=== PATIENT | female | born 1955 | race Caucasian/White ===

== ENCOUNTER → 2024-06-08 08:30 | Outpatient (REF) | payer OTHER, SELFPAY ==
[2024-06-08 19:53] LABS: Hepatitis B Surface Antibody Negative
[2024-06-08 19:56] LABS: Rubella Negative
[2024-06-10 07:05] LABS: Quantiferon Plus TB1 minus NIL 0.02 IU/mL (<=0.34); Quantiferon Plus TB2 minus NIL 0.03 IU/mL (<=0.34); Quantiferon TB Gold Plus Negative (Negative)
== END ==
LOC: REG 08:30
PROVIDERS: ATTENDING PHYSICIAN Nurse Practitioner Family; FAMILY PHYSICIAN Physician Assistant Medical
DX: Z23 Encounter for immunization (principal)
CPT/HCPCS: 86480; 86706; 86735; 86762; 86765; 86787

== ENCOUNTER → 2024-12-03 07:51 | Outpatient (REF) | payer MEDICARE, OTHER, SELFPAY ==
[2024-12-03 09:42] LABS: % Basophils 0.6 % (0-2); % Eosinophils 1.9 % (0-6); % Immature Granulocytes 0.2 % (0-0.5); % Lymphocytes 27.1 % (20.5-51.1); % Monocytes 8.4 % (1.7-9.3); % Neutrophils 61.8 % (42.2-75.2); Absolute Eosinophils 0.1 10^3/uL (0-0.7); Absolute Lymphocytes 1.4 10^3/uL (1.2-3.4); Absolute Monocytes 0.4 10^3/uL (0.1-0.6); Absolute Neutrophils 3.2 10^3/uL (1.4-6.5); Hematocrit 43.6 % (37.0-47.0); Hemoglobin 14.5 g/dL (12.0-16.0); Mean Corp Hgb Conc. 33.3 g/dL (33.0-37.0); Mean Corpuscular Hgb 30.9 pg (27.0-31.0); Mean Platelet Volume 10.1 fL (7.4-10.4); Nucleated Red Blood Cells % 0 %; Platelet Count 274 10^3/uL (130-400); Red Blood Cell Count 4.69 10^6/uL (4.20-5.40); White Blood Cell Count 5.2 10^3/uL (4.8-10.8)
[2024-12-03 09:58] LABS: ALT (SGPT) 44 U/L (0-35); AST (SGOT) 23 U/L (14-36); Albumin 4.5 g/dl (3.5-5.0); Alkaline Phosphatase 101 U/L (38-126); Blood Urea Nitrogen 26 mg/dl (7-17); Calcium 9.3 mg/dl (8.4-10.2); Carbon Dioxide 31 mmol/L (22-30); Chloride 103 mmol/L (98-107); Glucose 96 mg/dl (70-99); HDL Cholesterol 82 mg/dl; LDL Cholesterol, Calculated 181 mg/dl; Potassium 4.5 mmol/L (3.5-5.1); Sodium 138 mmol/L (135-145); Total Bilirubin 0.5 mg/dl (0.2-1.3); Total Cholesterol 284 mg/dl (50-199); Total Protein 7.5 g/dl (6.3-8.2); Triglyceride 107 mg/dl (10-149); Very Low Density Lipoprotein 21 mg/dl (0-30); eGFR > 60.00
[2024-12-03 11:09] LABS: TSH Reflex To Free T4 3.13 uIU/ml (0.47-4.68)
== END ==
LOC: REG 07:51
PROVIDERS: ATTENDING PHYSICIAN Physician Assistant Medical
DX: Z00.00 Encounter for general adult medical examination without abnormal findings (principal); K21.9 Gastro-esophageal reflux disease without esophagitis; J30.2 Other seasonal allergic rhinitis; G25.81 Restless legs syndrome; Z86.69 Personal history of other diseases of the nervous system and sense organs; Z13.220 Encounter for screening for lipoid disorders
CPT/HCPCS: 36415; 80053; 80061; 84443; 85025

== ENCOUNTER → 2025-01-12 18:35 | Outpatient (REF) | payer MEDICARE, OTHER, SELFPAY | LOC: RAD 18:35 | PROVIDERS: ATTENDING PHYSICIAN Dentist General Practice; FAMILY PHYSICIAN Physician Assistant Medical | DX: M25.531 Pain in right wrist (principal) | CPT/HCPCS: 73110 ==